=== PATIENT | female | born 1985 | race Caucasian/White ===

== ENCOUNTER 2019-06-05 | Emergency (ER) | payer BC | END 2019-06-05 13:53 | disposition home or self-care (01) | DX: S61.051A Open bite of right thumb without damage to nail, initial encounter (principal); W55.01XA Bitten by cat, initial encounter; Y93.F9 Activity, other caregiving; R03.0 Elevated blood-pressure reading, without diagnosis of hypertension | CPT/HCPCS: 90471; 90715; 99283; A9270 ==